=== PATIENT | male | born 1990 | race Caucasian/White ===

== ENCOUNTER 2022-09-02 08:52 | Day surgery (SDC) | payer BC ==
[~2022-09-02 08:52] MED LIST: Lactated Ringers 1,000 ML IV SCH; Propofol 200 MG/20 ML SDV ONE; Water For Injection, Sterile 20 ML ONE; fentaNYL 100 MCG/2 ML SDV ONE
[2022-09-02] MEDS ORDERED: Bupivacaine 0.5% 30 ML SDV ONE (09:14)
[2022-09-02] MEDS ORDERED: Lidocaine 1% 20 ML MDV ONE (09:14)
[2022-09-02] MEDS ORDERED: Naloxone 0.4 MG/ML SDV IVPUSH PRN (09:24)
[2022-09-02] MEDS ORDERED: HYDROmorphone 1 MG/ML Syringe IVPUSH PRN (09:24)
[2022-09-02] MEDS ORDERED: fentaNYL 50 MCG/ML SDV IVPUSH PRN (09:24)
[2022-09-02] MEDS ORDERED: Morphine 2 MG/ML SYRINGE IVPUSH PRN (09:24)
[2022-09-02] MEDS ORDERED: Albuterol 0.083% 2.5 MG/3 ML Neb Soln NEB PRN (09:24)
[2022-09-02] MEDS ORDERED: droPERidol 5 MG/2 ML SDV IVPUSH PRN (09:24)
[2022-09-02] MEDS ORDERED: Metoclopramide 10 MG/2 ML SDV IVPUSH PRN (09:24)
[2022-09-02] MEDS ORDERED: Ondansetron 4 MG/2 ML SDV IVPUSH PRN (09:24)
[2022-09-02] MEDS ORDERED: Lidocaine 2% 5 ML SDV ONE (10:01)
[2022-09-02] MEDS ORDERED: Ketorolac 30 MG/ML SDV ONE (10:36)
[2022-09-02] MEDS ORDERED: Sugammadex Sodium 200 MG/2 ML VIAL ONE (10:36)
[2022-09-02] MEDS ORDERED: Acetaminophen/HYDROcodone 325-5 MG Tab PO PRN (11:05)
[2022-09-02] MEDS ORDERED: Lactated Ringers 1,000 ML IV SCH (11:15)
== END 2022-09-02 11:47 | disposition home or self-care (01) ==
LOC: MW.SDS 08:52
PROVIDERS: ATTEND Surgery
DX: D17.79 Benign lipomatous neoplasm of other sites (principal); Z79.899 Other long term (current) drug therapy; Z79.1 Long term (current) use of non-steroidal anti-inflammatories (NSAID); Z87.891 Personal history of nicotine dependence; Z98.890 Other specified postprocedural states; Z82.61 Family history of arthritis
CPT/HCPCS: 21932; J1885; J2704; J3010; J3490; J7120

== ENCOUNTER 2024-08-04 08:55 | Emergency (ER) | payer BC ==
[2024-08-04] MEDS: Orphenadrine 60 MG/2 ML Inj IM ONE (09:50)
[2024-08-04] MEDS: Ketorolac 30 MG/ML SDV IM ONE (09:50)
== END 2024-08-04 10:17 | disposition home or self-care (01) ==
LOC: MW.ED 08:55
DX: M51.369 Other intervertebral disc degeneration, lumbar region without mention of lumbar back pain or lower extremity pain (principal); Z75.3 Unavailability and inaccessibility of health-care facilities
CPT/HCPCS: 72100; 96372; 99283; J1885; J2360